=== PATIENT | female | born 1955 | race Caucasian/White ===

== ENCOUNTER 2024-12-13 14:54 | Emergency (ER) | payer OTHER ==
[2024-12-13] MEDS ORDERED: Boostrix 0.5 ML (Tdap) VIAL (>/=7 yrs of age) ONE (15:22)
[2024-12-13] MEDS ORDERED: Rabies Vaccine Human 2.5 UNITS VIAL ONE (15:22)
[2024-12-13] MEDS ORDERED: Amoxicillin/Potassium Clav 875 MG TAB ONE (15:23)
[2024-12-13] MEDS ORDERED: Rabies Immune Globulin/PF 300 UNITS/ML VIAL ONE (15:38)
== END 2024-12-13 16:21 | disposition home or self-care (01) ==
LOC: MADERS 14:54
DX: S61.152A Open bite of left thumb with damage to nail, initial encounter (principal); S61.451A Open bite of right hand, initial encounter; I10 Essential (primary) hypertension; E11.9 Type 2 diabetes mellitus without complications; Z23 Encounter for immunization; W55.01XA Bitten by cat, initial encounter
CPT/HCPCS: 90375; 90471; 90675; 90715; J0665

== ENCOUNTER → 2024-12-17 | Day surgery (SDC) | payer OTHER ==
[~2024-12-17] MED LIST: Rabies Vaccine Human 2.5 UNITS VIAL ONE
== END ==
LOC: MADER/OP 11:50
PROVIDERS: ATTEND Emergency Medicine
DX: Z29.14 Encounter for prophylactic rabies immune globulin (principal)
CPT/HCPCS: 90675